=== PATIENT | female | born 1955 | race Caucasian/White ===

== ENCOUNTER 2019-09-14 11:31 | Outpatient (CLI) | payer MEDICARE, MEDICAID | END 2019-09-14 23:59 | disposition home or self-care (01) | LOC: RAD 11:31 | PROVIDERS: ATTEND Internal Medicine | DX: Z01.818 Encounter for other preprocedural examination (principal); I70.0 Atherosclerosis of aorta | CPT/HCPCS: 71046 ==

== ENCOUNTER 2020-08-15 12:20 | Emergency (ER) | payer MEDICARE, MEDICAID ==
[~2020-08-15] VITALS: Ht 167.6 cm; Wt 71.2 kg
--- NOTE | 2020-08-15 12:20 | NUR ---
PT [id number] FOREHEAD LACERATION S/P GLF. PT IS AAOX4, NOT IN RESPIRATORY DISTRESS, V/S STABLE, KEPT RESTED AND COMFORTABLE. WILL CONTINUE TO MONITOR.
[2020-08-15] MEDS ORDERED: CARB1TAB21 PO (12:42)
[2020-08-15] MEDS ORDERED: LAMI100T4 PO (12:42)
--- NOTE | 2020-08-15 12:55 | NUR ---
SEEN AND EXAMINED BY .
[2020-08-15] MEDS ORDERED: LIDOCAINE HCL/MPF 1% 30 ML VIAL IJ ONE (12:57)
--- NOTE | 2020-08-15 13:00 | NUR ---
[facility] AT BEDSIDE FOR WOUND CLEANING.
[2020-08-15] MEDS: LIDOCAINE 1% INJ 50 ML MDV IJ ONE (13:02)
[2020-08-15] MEDS: BACITRACIN ZINC OINT PACKET 1 EA PACKET TP ONE (13:03)
--- NOTE | 2020-08-15 13:10 | NUR ---
PT IS WHEELED TO CT SCAN VIA [facility], [place].
[2020-08-15 15:26] VITALS: BP 124/70
--- NOTE | 2020-08-15 15:26 | NUR ---
Patient discharged to home in stable condition. Written and verbal after care instructions given. Patient verbalizes understanding of instruction.
== END 2020-08-15 15:27 | disposition home or self-care (01) ==
LOC: ER 12:23
DX: S01.81XA Laceration without foreign body of other part of head, initial encounter (principal); Z98.890 Other specified postprocedural states; Z88.6 Allergy status to analgesic agent; Z79.899 Other long term (current) drug therapy; W18.39XA Other fall on same level, initial encounter; Y93.89 Activity, other specified; Y92.89 Other specified places as the place of occurrence of the external cause; Y99.8 Other external cause status
CPT/HCPCS: 12013; 70450; 99284; A6403; J3490